=== PATIENT | female | born 1965 | race Caucasian/White ===

== ENCOUNTER 2021-09-18 11:29 | Outpatient (CLI) | payer OTHER, SELFPAY ==
--- NOTE | 2021-09-18 11:30 | CRLHL7_ITS ---
For Patients: As a result of the Century Cures Act, medical imaging exams and procedure reports are released immediately into your electronic medical record. You may view this report before your referring provider. If you have questions, please contact your health care provider. BILATERAL MAMMOGRAM WITH COMPUTER-AIDED DETECTION TECHNIQUE: CC and MLO views were obtained. These mammographic images have been obtained using full-field digital technique. These mammographic images were interpreted with the benefit of computer-aided detection. COMPARISON FILM: 08/18/20, 03/15/16, 02/27/14. FINDINGS: There are scattered areas of fibroglandular density IMPRESSION: There is no radiographic evidence for malignancy. ASSESSMENT: BI-RADS Category 1: Negative RECOMMENDATION: Routine screening mammogram in 1 year. A lay language report of this examination will be provided to the patient. George Mcclain M.D. Diagnostic Radiologist [email or web address] / be/Dictated by: George Mcclain MD @ 09/18/2021 12:30:00 PM (Electronically Signed)
== END 2021-09-18 11:30 | disposition home or self-care (01) ==
LOC: MAMMO 11:30
PROVIDERS: PCP Family Medicine; Visit Provider Family Medicine
DX: Z12.31 Encounter for screening mammogram for malignant neoplasm of breast (principal)
CPT/HCPCS: 77063; 77067

== ENCOUNTER 2021-09-18 15:43 | Outpatient (CLI) | payer OTHER, SELFPAY ==
[2021-09-18 14:50] LABS: Albumin* 4.1 g/dL (3.3-5.0)
[2021-09-18 14:51] LABS: Chloride* 105 mmol/L (96-114); Potassium* 4.4 mmol/L (3.6-5.1); Sodium* 139 mmol/L (135-149)
[2021-09-18 14:53] LABS: Aspartate Amino Transferase* 25 U/L (12-35); Bilirubin Total* 0.5 mg/dL (0.1-1.5); Carbon Dioxide* 29 mmol/L (20-32); Cholesterol* 181 mg/dL (90-199); Creatinine* 0.7 mg/dL (0.5-1.5); Estimated Glomerular Filt Rate 101 ml/min
[2021-09-18 14:54] LABS: Alanine Aminotransferase* 12 U/L (4-35); Alkaline Phosphatase* 71 U/L (40-150); Blood Urea Nitrogen* 19 mg/dL (7-30); Calcium* 9.5 mg/dL (8.4-10.6); Glucose* 93 mg/dL (60-115); Total Protein* 6.9 g/dL (6.0-8.3); Triglycerides* 58 mg/dL (40-149)
[2021-09-18 14:55] LABS: HDL Cholesterol* 76 mg/dL (>=50); LDL Cholesterol Calculated 93 mg/dL (<100)
== END 2021-09-18 15:44 | disposition home or self-care (01) ==
PROVIDERS: PCP Family Medicine; Visit Provider Family Medicine
DX: Z13.6 Encounter for screening for cardiovascular disorders (principal)
CPT/HCPCS: 80053; 80061